=== PATIENT | female | born 1955 | race Caucasian/White ===

== ENCOUNTER → 2021-12-08 08:22 | Outpatient (CLI) | payer MEDICARE, SELFPAY ==
--- NOTE | 2021-12-08 08:32 | US_ITS ---
FINAL REPORT CLINICAL HISTORY: left THYROID NODULE FNA; Roz Maria/ Foreign/ Cara; 4 FNA passes, placed in cytology, sent for labs FINDINGS: ULTRASOUND GUIDED LEFT THYROID BIOPSY HISTORY: Left thyroid nodule. ATTENDING PHYSICIAN: Dr. Vikram MD PHYSICIAN FLORAL DESIGNER: Roz Maria PA-C PROCEDURE: Informed consent was obtained from the patient. A time out procedure was performed. Ultrasound was utilized to localize the dominant left thyroid nodule. Patient was prepped and draped in the usual sterile fashion over the left neck. 1% Lidocaine was utilized for local anesthesia. Four 25-gauge FNA passes were made of the left thyroid nodule using ultrasound guidance. Tissue samples were placed in [facility]ol[facility] and sent to the lab for analysis. Patient tolerated the procedure well and left the department in good condition. IMPRESSION: Technically successful ultrasound-guided FNA of a dominant left thyroid nodule, as described. Reviewed, Interpreted and Dictated by Donnell Sue III, MD Transcribed by Roz Maria PA-C Authenticated by Donnell Sue III, MD on 12/08/2021 12:44:44 PM [facility]
--- NOTE | 2021-12-08 08:32 | US_ITS ---
FINAL REPORT CLINICAL HISTORY: THYROID NODULE; patient had left thyroid FNA same day, performed by Roz Maria FINDINGS: THYROID ULTRASOUND Limited exam. There is a left thyroid nodule measuring up to 1.8 cm. This nodule is solid hypoechoic consistent with a TI-RADS 4. IMPRESSION: TI-RADS 4 left thyroid nodule. Reviewed, Interpreted and Dictated by Donnell Sue III, MD Transcribed by Yuniel Keys Authenticated by Donnell Sue III, MD on 12/08/2021 02:31:52 PM [facility]
== END ==
PROVIDERS: Visit Provider Otolaryngology
DX: E04.1 Nontoxic single thyroid nodule (principal)
CPT/HCPCS: 10005; 76536; 88173; 88305